=== PATIENT | male | born 1945 | race Caucasian/White ===

== ENCOUNTER 2018-11-22 14:38 | Observation (INO) | payer MEDICARE, OTHER ==
[~2018-11-22] VITALS: Ht 172.7 cm; Wt 81.6 kg
--- NOTE | ~2018-11-22 | HEMODYNAMI ---
PATIENT:WILLOW NICOLE MEDICAL RECORD: [id number] : 47 LOCATION:[facility] D.2119 ADMISSION DATE: 11/22/18 Generatedon:11/23/201813:14 Patient name: WILLOW NICOLE Patient #: [id number] SSN: : 1945 Date of study: 11/23/2018 Page: Of Hemodynamic Procedure Report Patient Data Patient Demographics Procedure consent was obtained First Name: WILLOW Gender: Male Last Name: COREY : 1945 Patient #: [id number] Age: 73 year(s) Race: Unknown Additional ID: [id number] Contact details [address]: [address] [place] [address] [place] State: [place] City: [place] Zip code: [address] Admission Admission Data Admission Date: 11/22/2018 Admission Time: 14:38 Room #: D.2119 Weight (lbs.): 180.78 Weight (kg.): 82 Lab Results Lab Result Date: 11/23/2018 Lab Result Time: 0:00 Biochemistry Name Units Result Min Max BUN mg/dl 16 --(---*)-- 7 18 Creatinine mg/dl 1.1 --(--*-)-- 0.6 1.3 CBC Name Units Result Min Max Hemoglobin g/dl 15.6 --(--*-)-- 13.5 17.5 Procedure Procedure Types Cath Procedure Diagnostic Procedure C [facility] w/Coronaries Procedure Description Procedure Date Procedure Date: 11/23/2018 Procedure Start Time: 13:02 Procedure End Time: 13:12 Procedure Staff Name Function Vinny Moore MD Performing Physician Polina Hayes RT Monitor Connor Liu RN Nurse Yehuda Rodas RT Scrub Procedure Data Cath Procedure Fluoroscopy Diagnostic fluoroscopy Total fluoroscopy Time: 1.9 time: 1.9 min min Diagnostic fluoroscopy Total fluoroscopy dose: 234 dose: 234 mGy mGy Contrast Material Contrast Material Type Amount (ml) Isovue 300 66 Entry Location Entry Primary Successful Side Size Upsize Upsize Entry Closure King ccessful Closure Location (Fr) 1 (Fr) 2 (Fr) Remarks Device Remarks Radial Right 6 Fr Mechanical artery Short Compression Estimated blood loss: 5 ml Diagnostic catheters Device Type Used For End Catheter Placement DIAGNOSTIC [place] 110cm 5 Multi-vessel Fr catheter ([id number]) Angiography Procedure Complications No complications Procedure Medications Medication Administration Route Dosage Oxygen etCO2 Nasal cannula 2 l/min Heparin Flush Bag added to field 2 bags (1000units/500ml NS) 0.9% NaCl I.V. 100 ml/hr Lidocaine 2% added to field 20 Radial Cocktail added to field 1 syringe (Verapomil 2mg/Nitro 400mcg/Heparin 1500units) Fentanyl I.V. 50 mcg Versed I.V. 1 mg Fentanyl I.V. 50 mcg Versed I.V. 1 mg Radial Cocktail I.A. 1 syringe (Verapomil 2mg/Nitro 400mcg/Heparin 1500units) Hemodynamics Rest HGB: 15.6 (g/dl) Heart Rate: 61 (bpm) Pressure Samples Time Site Value (mmHg) Purpose Heart Use Rate(bpm) 13:05 LV 114/-3,9 Snapshot 70 Gradients Valve Time Site Site Mean SEP/DFP Peak To Heart Use 1 2 (mmHg) (sec/min) Peak Rate (mmHg) (bpm) Aortic 13:06 LV AO 79 Snapshots Pre Cath Intra NCS Post Cath Vital Signs Time Heart Resp SPO2 etCO2 NIBP (mmHg) Rhythm Pain Sedation Rate (ipm) (%) (mmHg) Status Level (bpm) 12:49:32 62 16 99 0 137/78(108) NSR 0 (11) 10(A) , No pain 12:53:44 66 16 97 0 131/72(110) NSR 0 (11) 10(A) , No pain 12:57:58 62 17 94 0 123/70(100) NSR 0 (11) 9(A) , No pain 13:02:10 66 17 94 0 114/68(94) NSR 0 (11) 9(A) , No pain 13:06:20 68 17 92 0 95/55(88) NSR 0 (11) 9(A) , No pain 13:10:22 68 16 94 0 115/65(86) NSR 0 (11) 9(A) , No pain 13:13:18 64 17 95 0 113/63(82) NSR 0 (11) 9(A) , No pain Medications Time Medication Route Dose Verified Delivered Reason Notes Effectiveness by by 12:52:02 Oxygen etCO2 2 l/min Vinny Connor Per Nasal Oscar Liu RN physician cannula 12:52:11 Heparin Flush added 2 bags Vinny Connor used for Bag to Oscar Liu RN procedure (1000units/500ml field NS) 12:52:33 0.9% NaCl I.V. 100 Vinny Connor Per ml/hr Oscar Liu RN physician 12:52:42 Lidocaine 2% added 20ml Vinny Connor used for to vial Oscar Liu RN procedure field 12:52:50 Radial Cocktail added 1 Vinny Connor used for (Verapomil to syringe Oscar Liu RN procedure 2mg/Nitro field 400mcg/Heparin 1500units) 12:56:37 Fentanyl I.V. 50 mcg Vinny Connor for sedation Oscar Liu RN 12:56:43 Versed I.V. 1 mg Vinny Connor for sedation Oscar Liu RN 13:03:46 Fentanyl I.V. 50 mcg Vinny Connor for sedation Oscar Liu RN 13:03:50 Versed I.V. 1 mg Vinny Connor for sedation Oscar Liu RN 13:04:00 Radial Cocktail I.A. 1 Vinny Vinny for (Verapomil syringe Oscar Moore MD vasodilation 2mg/Nitro 400mcg/Heparin 1500units) Procedure Log Time Note 12:30:52 Connor Liu RN sent for patient. Start room use. 12:35:54 Time tracking: Regular hours (M-F 7:00 - 5:00) 12:36:00 Plan of Care:Hemodynamics will remain stable., Cardiac rhythm will remain stable., Comfort level will be maintained., Respiratory function will remain adequate., Patient/ family verbilizes understanding of procedure., Procedure tolerated without complication., Recovers from procedure without complications.. 12:36:50 Patient Weight : 180.78 lbs 12:37:33 Lab Result : Hemoglobin 15.6 g/dl 12:37:33 Lab Result : Creatinine 1.1 mg/dl 12:37:33 Lab Result : BUN 16 mg/dl 12:43:53 Patient received from ROXIMITY to CCL 3 Alert and oriented. Tansferred to table in Supine position. 12:43:54 Warm blankets applied, and mo hugger turned on for patient comfort. 12:43:54 Correct patient and procedure confirmed by team. 12:43:55 Signed procedure consent form obtained from patient. 12:43:56 ECG and BP/O2 sat monitors applied to patient. 12:48:32 Vital chart was started 12:52:02 Oxygen 2 l/min etCO2 Nasal cannula was administered by Connor Liu RN; Per physician; 12:52:11 Heparin Flush Bag (1000units/500ml NS) 2 bags added to field was administered by Connor Liu RN; used for procedure; 12:52:27 Baseline sample Acquired. 12:52:30 Rhythm: sinus rhythm 12:52:32 Full Disclosure recording started 12:52:33 0.9% NaCl 100 ml/hr I.V. was administered by Connor Liu RN; Per physician; 12:52:35 H&P Date Dictated: 11/23/2018 New H&P dictated by physician.. 12:52:37 Pre-procedure instructions explained to patient. 12:52:38 Pre-op teaching completed and patient verbalized understanding. 12:52:39 Family in waiting room. 12:52:41 Patient NPO since Midnight. 12:52:42 Lidocaine 2% 20ml vial added to field was administered by Connor Liu RN; used for procedure; 12:52:43 Is the patient allergic to Iodine/contrast media? No. 12:52:44 Was the patient premedicated? No 12:52:45 Is patient on blood thinner?No 12:52:47 Patient diabetic? No. 12:52:50 Radial Cocktail (Verapomil 2mg/Nitro 400mcg/Heparin 1500units) 1 syringe added to field was administered by Connor Liu RN; used for procedure; 12:52:50 Previous problem with sedation/anesthesia? No ? 12:52:52 Snore? Yes 12:52:53 Sleep apnea? No 12:52:54 Deviated septum? No 12:52:55 Opens mouth fully? Yes 12:52:56 Sticks out tongue? Yes 12:52:58 Airway obstruction? No ? 12:53:01 Dentures? Yes OUT 12:53:05 Pre procedure: right dorsailis pedis pulse 2+ Normal; easily identifiable; not easily obliterated 12:53:08 Pre procedure: left dorsailis pedis pulse 2+ Normal; easily identifiable; not easily obliterated 12:53:10 Patient pain scale 0/10 ?. 12:53:16 IV patent on arrival in left forearm with 0.9% NaCl at KVO. 12:53:31 Lab results completed and on chart. 12:53:35 Right Radial & Right Groin area was prepped with chlora-prep and draped in sterile fashion 12:53:36 Alarms reviewed by R. N. 12:53:36 Sharps counted by scrub and verified by R.N. 12:53:38 Physician arrived 12:53:39 Physician arrived 12:53:39 Final Timeout: patient, procedure, and site verified with staff and physician. All members of the team are in agreement. 12:53:40 --------ALL STOP TIME OUT------ 12:53:42 Right Radial & Right Groin site verified by team. 12:53:46 Maximum allowable Isovue 300 dose 300ml. Physician notified. (300ml for normal creatinines. For patients with creatinine of 1.7 or higher multiply weight(kg) x 5 divided by creatinine.) 12:53:50 Fire Safety Assessment: A--An alcohol-based skin anteseptic being used preoperatively., C--Open oxygen or nitrous oxide is being used., D--An ESU, laser, or fiber-optic light is being used. 12:53:54 Physical assessment completed. ASA score P 2 - A patient with mild systemic disease as per Vinny Moore MD. 12:53:58 Sedation plan: IV Moderate Sedation Medication:Versed, Fentanyl 12:54:01 Use device set Radial Dx or PCI 12:54:02 ACIST Syringe (26996) opened to sterile field. 12:54:02 Medline Cath Pack ([id number]) opened to sterile field. 12:54:03 Bag Decanter (2002) opened to sterile field. 12:54:03 DIAGNOSTIC WIRE .035 260cm J wire (509670) opened to sterile field. 12:54:04 ACIST Hand Control (37251) opened to sterile field. 12:54:04 ACIST Manifold (16626) opened to sterile field. 12:54:05 Tegaderm 4 x 4 (1626W) opened to sterile field. 12:54:05 MBrace Wrist Support ([id number]) opened to sterile field. 12:54:06 SHEATH 6FR Slender (70-7502) opened to sterile field. 12:56:37 Fentanyl 50 mcg I.V. was administered by Connor Liu RN; for sedation; 12:56:43 Versed 1 mg I.V. was administered by Connor Liu RN; for sedation; 13:00:15 Procedure started. 13:02:36 Local anesthetic to right radial artery with Lidocaine 2% by Vinny Moore MD.INITIAL ACCESS ONLY 13:03:30 A 6 Fr Short sheath was inserted into the Right Radial artery 13:03:46 Fentanyl 50 mcg I.V. was administered by Connor Liu RN; for sedation; 13:03:50 Versed 1 mg I.V. was administered by Connor Liu RN; for sedation; 13:03:54 A DIAGNOSTIC [place] 110cm 5 Fr catheter ([id number]) was advanced over the wire and used for Multi-vessel Angiography. 13:04:00 Radial Cocktail (Verapomil 2mg/Nitro 400mcg/Heparin 1500units) 1 syringe I.A. was administered by Vinny Moore MD; for vasodilation; 13:05:23 LV hemodynamics recorded. 13:05:24 LV gram done using [place] 13:05:27 Injector settings: Ml/sec: 5, Volume: 15, 13:05:36 EF : 55 % 13:06:26 LCA angiography performed. 13:06:28 Injector settings: Ml/sec: 3, Volume: 6, 13:08:24 RCA angiography performed. 13:08:34 Injector settings: Ml/sec: 3, Volume: 6, 13:09:39 Catheter removed. 13:09:48 TR BAND Standard ([id number]) opened to sterile field. 13:10:06 Sheath removed intact; hemostasis achieved with Mechanical Compression to the Right Radial artery. 13:10:07 Procedure ended.(Physican Out) 13:10:36 Fluoroscopy time 01.90 minutes. ::42 Fluoroscopy dose: 234 mGy 13::42 Flurop Dose total: 234 13:10:47 Contrast amount:Isovue 300 66ml. 13:10:49 Sharps counted by scrub and verified by R.N. 13:10:53 TR band inflated with 10cc of air. 13:10:56 Insertion/operative site no bleeding no hematoma. 13:11:04 Post right radial artery:stable 13:11:08 Post Procedure Pulses reassessed and unchanged 13:11:10 Post procedure rhythm: unchanged. 13:11:14 Estimated blood loss: 5 ml 13:11:26 Post procedure instruction explained to patient.Patient verbalizes understanding. 13:11:26 Patient needs reinforcement of post procedure teaching. 13:11:35 Procedure and supply charges have been captured, reviewed, submitted and are correct. 13:11:41 Procedure Complication : No complications 13:11:43 Vital chart was stopped 13:11:45 See physician's report for complete and final results. 13:11:53 Report given to Med II. 13:11:56 Patient transfered to Med II with Stretcher. 13:12:04 Procedure ended. 13:12:04 Full Disclosure recording stopped 13:12:08 End room use (Document Last) Device Usage Item Name Manufacture Quantity Catalog Hospital Part Current Minimal Lot# / Number Charge Number Stock Stock Serial# Code ACIST Acist 1 16380 [id number] 286201 037333 20 Syringe Medical (21021) Systems Inc Medline Medline 1 [id number] 579104 66118 780661 5 Cath Pack ([id number]) Bag Microtek 1 2001S 530915 44954 578115 5 Decanter Medical Inc. () DIAGNOSTIC [facility] [place] 1 206264 790461 171043 373341 30 WIRE .035 260cm J wire (670702) ACIST Hand Acist 1 55281 076416 345232 551583 5 Control Medical (93270) Systems Inc ACIST Acist 1 91272 015974 940333 609907 5 Manifold Medical (02582) Systems Inc Tegaderm 4 3M 1 1626W 727626 840769 484370 5 x 4 (1626W) MBrace Advanced 1 140-0250-00 673817 11624 026906 5 Wrist Vascular Support Dynamics ([id number]) SHEATH 6FR Terumo 1 [id number] 529797 924888 445235 5 Slender (80-1060) DIAGNOSTIC Terumo 1 405010 412199 412467 453711 5 [place] 110cm 5 Fr catheter (508306) TR BAND Terumo 1 [id number] 323964 727200 120529 40 Standard ([id number]) Signature Audit [place] Stage Time Signature Unsigned Intra-Procedure 11/23/2018 Polina Hayes 1:14:51 PM RT(R) Signatures Monitor : Polina Hayes RT Signature : Date : Time : [place] [place] [address]
[2018-11-22] MEDS ORDERED: COZAAR50 MG PO (15:06)
--- NOTE | 2018-11-22 15:56 | NUR ---
RECIEVED FROM ADMISSIONS. ALERT AND ORIENTED.V/S STABLE . DENIES ANY PAIN AT PRESENT TIME.TELEMERTY SHOWS SB. SL STARTED IN LEFT FA WITH A 20 XU TIMES 1 STICK. SR UP WITH CL IN REACH
[2018-11-22 16:04] VITALS: BMI 28.7
[2018-11-22 16:09] LABS: BASOPHILS 0.2 % (0-2); EOSINOPHILS 2.9 % (0-7); HEMOGLOBIN 15.6 g/dL (13.5-17.5); IMMATURE GRANULOCYTES 0.2 % (0-5); LYMPHOCYTES 26.4 % (15-50); MCH 31.5 pg (26.0-34.0); MCHC 35.5 g/dL (31.0-37.0); MCV 88.7 fL (80.0-100.0); MEAN PLATELET VOLUME 10.6 fL (7.4-10.4); NEUTROPHILS 64.3 % (40-80); PLATELET COUNT 192 10x3/uL (130-400); RBC 4.96 10x6/uL (4.20-6.10); RDW 12.9 % (11.5-14.5); WBC 5.2 10x3/uL (4.8-10.8)
--- NOTE | 2018-11-22 16:36 | NUR ---
ADMISSION ASSESSMENT DONE. PT AWAKE AND ALERT. MONITOR SHOWS SINUS INDY AT RATE OF 57. SEE ASSESSMENT FOR FURTHER EVAL. DR. LÓPEZ VISITED AND INFORM PT AND FAMILY OF HEART CATH AT 12OO. PROCEDURE EXPLAINED FURTHER TO PT AND FAMILY. BOTH UNDERSTAND.
[2018-11-22 16:43] LABS: ALBUMIN 4.1 g/dL (3.4-5.0); ALKALINE PHOSPHATASE 48 U/L (46-116); ALT (SGPT) 25 U/L (10-68); BILIRUBIN - TOTAL 0.66 mg/dL (0.2-1.3); CALC OSMOLALITY 278 mosm/kg (275-300); CALCIUM 8.8 mg/dL (8.5-10.1); CHLORIDE - SERUM 103 mmol/L (98-107); CHOL - HDL RATIO 4.9 ratio (2.3-4.9); CHOLESTEROL, TOTAL 201 mg/dL (0-200); CREATINE KINASE 69 UL (21-232); CREATININE - SERUM 1.2 mg/dL (0.6-1.3); GLUCOSE 90 mg/dL (74-106); HDL CHOLESTEROL 41 mg/dL (32-96); LDL CHOLESTEROL 130 mg/dL (0-100); LDL-HDL RATIO 3.2 ratio (1.5-3.5); POTASSIUM - SERUM 4.1 mmol/L (3.5-5.1); PRO BNP 983 pg/mL (0-125); SODIUM 139 mmol/L (136-145); TRIGLYCERIDE 153 mg/dL (30-200); UREA NITROGEN 14 mg/dL (7-18); eGFR NON AFRICAN AMERICAN 63 mL/min (90-120)
--- NOTE | 2018-11-22 19:30 | NUR ---
RESUMING PATIENT CARE. PATIENT IS ALERT AND ORIENTED. RESPIRATIONS ARE EVEN AND UNLABORED. NO S/S OF DISTRESS. NO C/O PAIN. DENIES NEEDS AT THIS TIME. CALL LIGHT WITHIN REACH. WILL CPOC.
[2018-11-22 20:00] VITALS: BP 131/60
[2018-11-22 21:17] LABS: CKMB 1.6 U/L (0.0-3.6); CREATINE KINASE 64 UL (21-232); TROPONIN-I 0.151 ng/mL (0.000-0.060)
[2018-11-23] VITALS: BP 118/53
--- NOTE | 2018-11-23 03:43 | NUR ---
PATIENT RESTING COMFORTABLY IN BED. RESPIRATIONS ARE EVEN AND UNLABORED. NO S/S OF DISTRESS. NO C/O PAIN. CALL LIGHT WITHIN REACH. WILL CPOC.
[2018-11-23 04:00] VITALS: BP 110/50
[2018-11-23 05:25] LABS: BASOPHILS 0.5 % (0-2); HEMATOCRIT 44.7 % (42.0-54.0); HEMOGLOBIN 15.6 g/dL (13.5-17.5); IMMATURE GRANULOCYTES 0.3 % (0-5); MCH 30.9 pg (26.0-34.0); MCHC 34.9 g/dL (31.0-37.0); MCV 88.5 fL (80.0-100.0); MEAN PLATELET VOLUME 10.7 fL (7.4-10.4); MONOCYTES 9.9 % (2-11); NEUTROPHILS 58.3 % (40-80); PLATELET COUNT 180 10x3/uL (130-400); RBC 5.05 10x6/uL (4.20-6.10); RDW 12.9 % (11.5-14.5); WBC 5.7 10x3/uL (4.8-10.8)
[2018-11-23 05:34] LABS: ALBUMIN 3.7 g/dL (3.4-5.0); ALKALINE PHOSPHATASE 44 U/L (46-116); ALT (SGPT) 22 U/L (10-68); CALC OSMOLALITY 277 mosm/kg (275-300); CALCIUM 8.2 mg/dL (8.5-10.1); CARBON DIOXIDE 22.5 mmol/L (21.0-32.0); CHLORIDE - SERUM 106 mmol/L (98-107); CKMB 1.2 U/L (0.0-3.6); CREATINE KINASE 56 UL (21-232); CREATININE - SERUM 1.1 mg/dL (0.6-1.3); GLUCOSE 114 mg/dL (74-106); MAGNESIUM - SERUM 2.3 mg/dL (1.8-2.4); POTASSIUM - SERUM 4.3 mmol/L (3.5-5.1); PROTEIN - SERUM 6.3 g/dL (6.4-8.2); SODIUM 138 mmol/L (136-145); UREA NITROGEN 16 mg/dL (7-18); eGFR NON AFRICAN AMERICAN 70 mL/min (90-120)
[2018-11-23 05:37] LABS: TROPONIN-I 0.104 ng/mL (0.000-0.060)
--- NOTE | 2018-11-23 07:30 | NUR ---
ASSESSMENT COMPLETED. ALERT AND ORIENTED.TELEMERTY SHOWS SR. LEFT ARM SL PATENT. DENIES ANY NEEDS NPO FOR CATH. CALL LIGHT IN REACH
--- NOTE | 2018-11-23 11:41 | NUR ---
I have reviewed this patient and I concur with the Shift Assessment completed by the Licensed Practical Nurse today this shift.
--- NOTE | 2018-11-23 12:48 | NUR ---
TO VACATION PLANNER PER BED
[2018-11-23 13:21] VITALS: Ht 172.7 cm; Wt 81.6 kg
--- NOTE | 2018-11-23 13:57 | NUR ---
BACK FROM [employer]. V/S STABLE. TR BAND TO RIGHT WRIST. FINGERS WARM. TELEMERTY SHOWS SR. DENIES ANY NEEDS. WILL BE TRANSFERED TO [facility] FOR A CABG. FAMILY AT BEDSIDE
--- NOTE | 2018-11-23 14:29 | NUR ---
PT LYING QUIETLY WITH EYES CLOSED. V/S STABLE. TELEMERTY SHOWS SR. TR BAND WITH NO BLEEDING NOTED. FINGERS WARM. AWAITING TRANSFER
[2018-11-23] MEDS ORDERED: CARAFATE1 G PO (19:23)
[2018-11-23] MEDS ORDERED: PROTONIX40 MG PO (19:23)
[2018-11-23] MEDS ORDERED: LIPITOR10 MG PO (19:23)
--- NOTE | 2018-11-23 19:23 | NUR ---
DR ARELLANO SAID TO NOT START THE HEPARIN THE PT STILL HAS SOME OZZING AT TR BAND CATH SITE
--- NOTE | 2018-11-26 09:23 | MORECARE ---
CASE MANAGEMENT DISCHARGE SUMMARY PATIENT: WILLOW NICOLE UNIT: [id number] ADM DATE: 11/22/18 AGE: 73 : 46 SEX: M ROOM/BED: D.2119 AUTHOR: DANICA RODRIGUEZ PHYSICIAN: REFERRING PHYSICIAN: CASI STREET MD DATE OF SERVICE: 11/26/18 Discharge Plan Patient Name: WILLOW NICOLE [facility] [facility] 1945 Planned Disposition: Home Anticipated Discharge Date: 11/23/18 Discharge Date: 11/23/2018 Expected LOS: 1 Initial Reviewer: [id number] Initial Review Date: 11/26/2018 Generated: 11/26/18 10:22 am Patient Name: WILLOW NICOLE Page [id number] at 0923 All edits/amendments must be made on the electronic document DICTATION DATE: 11/26/18921 FIRST AID TEACHER: CRISTINA 11/26/18921 RPT#: [id number] DC DATE:11/23/18 STATUS: DIS IN [facility] [address] [place] [address] END OF REPORT
== END 2018-11-23 19:45 | disposition short-term general hospital (02) ==
LOC: D.M2 14:38 → OBSVTIME 14:40 → D.M2 11-23 19:45
PROVIDERS: Family Medicine; ADMIT Internal Medicine Nephrology; ATTEND Internal Medicine Nephrology
DX: I25.110 Atherosclerotic heart disease of native coronary artery with unstable angina pectoris (principal); I10 Essential (primary) hypertension

== ENCOUNTER → 2020-01-02 09:40 | Outpatient (CLI) | payer MEDICARE, OTHER ==
[2018-11-23 13:21] VITALS: BMI 27.3
[~2020-01-02 09:40] MED LIST: CARAFATE1 G PO; COZAAR50 MG PO; LIPITOR10 MG PO; PROTONIX40 MG PO
== END | disposition home or self-care (01) ==
LOC: D.HCCECHO 09:30
PROVIDERS: ATTEND Internal Medicine Cardiovascular Disease
DX: I34.0 Nonrheumatic mitral (valve) insufficiency (principal)